=== PATIENT | female | born 1950 | race Two or more races ===

== ENCOUNTER 2016-09-18 17:36 | Emergency (ER) | payer OTHER ==
[~2016-09-18] VITALS: Ht 157.5 cm; Wt 63.5 kg
[2016-09-18] MEDS ORDERED: Bacitracin Oint UD TOPIC ONE (18:00)
[2016-09-18] MEDS ORDERED: TdaP Vaccine 0.5ml Syr IM ONE (18:00)
[2016-09-18] MEDS ORDERED: Lidocaine 1% MPF 10mg/ml 5ml INJ ONE (18:00)
--- NOTE | 2016-09-18 18:12 | Emergency Room Report ---
History of Present Illness General Chief Complaint: Laceration Source: Patient Present Illness [facility] The patient is a 65-year-old female presenting for a laceration. The patient states that she was using a knife in the kitchen and cut the left index finger by accident. She noticed pain and bleeding. Pain is described as a 2/10 dull ache and does not radiate. Worse with touch. She denies any numbness or tingling. She is unsure of last tetanus shot. She denies any other symptoms Allergies: Coded Allergies: No Known Allergies (Unverified , 09/18/16) Patient History Past Medical History: see triage record Pertinent Family History: none Reviewed Nursing Documentation: PMH: Agreed, PSxH: Agreed Nursing Documentation-PMH Hx Cardiac Problems: Yes Review of Systems All Other Systems: negative except mentioned in HPI Physical Exam Sp02 EP Interpretation: reviewed, normal General Appearance: no apparent distress, alert, GCS 15, non-toxic Head: normocephalic, atraumatic Eyes: bilateral eye PERRL, bilateral eye normal inspection ENT: hearing grossly normal, normal pharynx, no angioedema, normal voice Neck: full range of motion, supple/symm/no masses Musculoskeletal: back normal, gait/station normal, normal range of motion, tender - TTP over the distal L index finger Neurologic: alert, oriented x3, responsive, motor strength/tone normal, sensory intact, speech normal Psychiatric: judgement/insight normal, memory normal, mood/affect normal, no suicidal/homicidal ideation Skin: laceration - 2cm curved laceration to distal L index finger palmar surface Lymphatic: no adenopathy Procedures Laceration/Wound Repair Laceration/Wound Repair : Consent: Verbal Wound Location: upper extremity Wound's Depth, Shape: superficial, linear Wound Length (cm): 2 Wound Explored: clean Irrigated w/ Saline (ccs): 200 Betadine Prep?: Yes Anesthesia: 1% Lidocaine Volume Anesthetic (ccs): 5 Wound Debrided: minimal Wound Repaired With: sutures Suture Size/Type: 4:0, proline Number of Sutures: 3 Layer Closure?: No Sterile Dressing Applied?: Yes Splint Applied?: No Sling Applied?: No Patient Tolerated: Well Complications: None Medical Decision Making PA Attestation Dr. Chow is my supervising physician. Patient management was discussed with my supervising physician Diagnostic Impression: Primary Impression: Laceration of index finger Qualified Codes: S61.218A - Laceration without foreign body of other finger without damage to nail, initial encounter ER Course The patient is a 65-year-old female presenting for a laceration. Ddx considered include but not limited to fracture, tendon/ligament injury, avulsion, nerve damage PE: 2 cm curved laceration to the left distal index finger. Palmar surface. Full active range of motion. SILT The wound was irrigated with normal saline and cleaned with betadine. A 27g needle was used to administer 5mL of lidocaine w.o epi for digital block. 3 sutures were placed with 4-0 prolene. The wound was well approximated and the patient tolerated the procedure well. The wound was then cleaned and bacitracin was applied. The patient will continue to keep the wound clean and dry and will followup with PMD and workers compensation. Suture instructions provided. ER precautions are given Status: improved Disposition: HOME, SELF-CARE Condition: Improved Scripts Bacitracin (Bacitracin) 28.4 Gm Oint...g. 1 APPLIC TOPIC THREE TIMES A DAY, #28 GM Prov: JENNIFER OCHOA 09/18/16 Referrals: Hiwot ZAMORA,REFERRING (PCP) JENNIFER OCHOA Sep 18, 2016 18:12
[2016-09-18] MEDS ORDERED: BACITRACIN15 GM TOPIC (18:25)
[2016-09-18 18:40] VITALS: BP 130/79
== END 2016-09-18 18:40 | disposition home or self-care (01) ==
LOC: EMR 17:51
DX: S61.211A Laceration without foreign body of left index finger without damage to nail, initial encounter (principal); W26.0XXA Contact with knife, initial encounter; Y92.010 Kitchen of single-family (private) house as the place of occurrence of the external cause; Z23 Encounter for immunization
CPT/HCPCS: 12001; 90471; 90715; 96372; 99284; Z7502

== ENCOUNTER 2016-09-26 15:45 | Emergency (ER) | payer OTHER ==
[~2016-09-26] VITALS: Ht 142.2 cm; Wt 68.0 kg
[~2016-09-26 15:45] MED LIST: BACITRACIN15 GM TOPIC
[2016-09-26 15:53] VITALS: BP 138/79
--- NOTE | 2016-09-26 16:29 | Emergency Room Report ---
History of Present Illness General Chief Complaint: Wound Recheck/Suture Removal Present Illness HPI 65-year-old female presents emergency department for suture removal of stitches that were placed 8 days ago in the left index finger. Patient denies pain she denies erythema denies discharge or crusting. Patient states she is up-to-date with vaccinations. Denies CP, Palpitations, LOC, AMS, dizziness, Changes in Vision, Sensation, paresthesias, or a sudden severe headache. Allergies: Coded Allergies: No Known Allergies (Unverified , 09/18/16) Patient History Past Medical History: see triage record Past Surgical History: none Pertinent Family History: none Now: No Immunizations: UTD Reviewed Nursing Documentation: PMH: Agreed, PSxH: Agreed Nursing Documentation-PMH Past Medical History: No Stated History Hx Cardiac Problems: Yes Review of Systems All Other Systems: negative except mentioned in HPI Physical Exam Vital Signs Date Time Temp Pulse Resp B/P Pulse Ox O2 Delivery O2 Flow Rate FiO2 09/26/16 15:53 97.5 65 16 138/79 100 Room Air Sp02 EP Interpretation: reviewed, normal General Appearance: no apparent distress, alert, GCS 15, non-toxic Head: normocephalic, atraumatic Eyes: bilateral eye PERRL, bilateral eye normal inspection ENT: hearing grossly normal, normal pharynx, no angioedema, normal voice Neck: full range of motion, supple/symm/no masses Respiratory: lungs clear, normal breath sounds, speaking full sentences Cardiovascular #1: regular rate, rhythm, no edema Musculoskeletal: back normal, gait/station normal, normal range of motion, non- tender Neurologic: alert, oriented x3, responsive, motor strength/tone normal, sensory intact, speech normal Psychiatric: judgement/insight normal, memory normal, mood/affect normal Skin: normal color, no rash, warm/dry, well hydrated, wd healing/no infection noted - three sutures noted Medical Decision Making PA Attestation Dr. Florian is my supervising Physician whom patient management has been discussed with. Diagnostic Impression: Primary Impression: Encounter for removal of sutures ER Course Pt. presents to the ED c/o sutures on the left index finger that need to be removed s/p wound closure. Ddx considered but are not limited to laceration, tendon injury, cellulitis, dehiscence. Vital signs: are WNL, pt. is afebrile H&PE are most consistent with: healed laceration of the left index finger ORDERS: none required at this time, the diagnosis is clinical ED INTERVENTIONS: - 3 Sutures removed. -Bacitracin applied. DISCHARGE: At this time pt. is stable for d/c to home. Will provide printed patient care instructions, and any necessary prescriptions. Care plan and follow up instructions have been discussed with the patient prior to discharge. Last Vital Signs Date Time Temp Pulse Resp B/P Pulse Ox O2 Delivery O2 Flow Rate FiO2 09/26/16 15:53 97.5 65 16 138/79 100 Room Air Disposition: HOME, SELF-CARE Condition: Stable Patient Instructions: Suture Removal, Care After Additional Instructions: Take medications as directed. Follow up with PCP in 3-5 days Return sooner to ED if new symptoms occur, or current symptoms become worse. - Please note that this Emergency Department Report was dictated using [employer] operator technology software, occasionally this can lead to erroneous entry secondary to interpretation by the dictation equipment. Saritha Raymond Sep 26, 2016 16:29
[2016-09-26] MEDS ORDERED: Bacitracin Oint UD TOPIC ONE (16:45)
[2016-09-26 16:52] VITALS: BP 142/88
== END 2016-09-26 16:55 | disposition home or self-care (01) ==
LOC: EMR 16:00
DX: Z48.02 Encounter for removal of sutures (principal)
CPT/HCPCS: 99281